=== PATIENT | male | born 1960 | race Caucasian/White ===

== ENCOUNTER 2018-09-29 21:46 | Emergency (ER) | payer BC ==
[2018-09-29] MEDS ORDERED: KETOROLAC 60 MG/2 ML VIAL IM STA (22:12)
--- NOTE | 2018-09-29 22:18 | Emergency Department Record ---
History of Present Illness - General Chief complaint: Extremity Problem Stated complaint: LT ARM INJURY,HAND NUMBNESS/ARM PAIN Time Seen by Provider: 09/29/18 22:12 Source: Patient Mode of Arrival: Ambulatory Limitations: No limitations - History of Present Illness Initial comments: 58 yo male presents to ED for evaluation of left shoulder pain, left forearm pain, and numbness to the left thumb, index finger, and middle finger. 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 Patient denies specific injury this evening, but was scared by the sound of a loud air horn that caused him to jump resulting in pain. Patient reports previous exacerbations of pain to the shoulder related to his work. MD Complaint: Joint pain Onset/Timin -: Hour(s) Location: Left, Forearm, Shoulder History of Same: Yes Radiation: Proximal Severity scale (1-10): 7 Quality: Other Consistency: Intermittent Improves with: Nothing Associated Symptoms: Denies other symptoms - Related Data Home Medications Medication Instructions Recorded Confirmed Last Taken Atorvastatin Calcium 10 mg PO DAILY 09/29/18 09/29/18 09/29/18 Dapagliflozin Propanediol [Farxiga] 5 mg PO DAILY 09/29/18 09/29/18 09/29/18 Glipizide 5 mg PO BID 09/29/18 09/29/18 09/29/18 Lisinopril/Hydrochlorothiazide 1 each PO DAILY 09/29/18 09/29/18 09/29/18 [Lisinopril-Hctz 10-12.5 mg Tab] Metformin HCl 1,000 mg PO BID 09/29/18 09/29/18 09/29/18 Previous Rx's Medication Instructions Recorded Ibuprofen [Motrin] 800 mg PO Q6H PRN #30 tab 09/29/18 Prednisone [Prednisone 20Mg] 20 mg PO BID #10 tab 09/29/18 Allergies Allergy/AdvReac Type Severity Reaction Status Date / Time No Known Drug Allergies Allergy Verified 09/29/18 22:13 Travel Screening - Travel/Exposure Within Last 30 Days Have you traveled within the last 30 days?: Yes Location Detail:: [place] - Travel/Exposure Within Last Year Have you traveled outside the [place] in the last year?: No - Additonal Travel Details Have you been exposed to anyone with a communicable illness?: No - Travel Symptoms Symptom Screening: None Review of Systems Constitutional: Denies: Chills, Fever, Malaise, Night sweats Eyes: Denies: Eye discharge, Eye pain ENT: Denies: Congestion, Ear pain, Epistaxis Respiratory: Denies: Cough, Dyspnea Cardiovascular: Denies: Chest pain, Dyspnea on exertion Endocrine: Denies: Fatigue, Heat or cold intolerance Gastrointestinal: Denies: Abdominal pain, Nausea, Vomiting Genitourinary: Denies: Incontinence, Retention Musculoskeletal: Reports: Arthralgia. Denies: Back pain, Gout, Joint swelling Skin: Denies: Bruising, Change in color Neurological: Denies: Abnormal gait, Confusion, Headache, Seizure Psychiatric: Denies: Anxiety Hematological/Lymphatic: Denies: Anemia, Blood Clots Past Medical History - SOCIAL HISTORY Smoking Status: Current some day smoker Alcohol Use: Occasional Drug Use: None - RESPIRATORY Hx Respiratory Disorders: No - CARDIOVASCULAR Hx Cardio Disorders: Yes Hx Hypertension: Yes - NEURO Hx Neuro Disorders: No - GI Hx GI Disorders: No - Hx Genitourinary Disorders: No - ENDOCRINE Hx Endocrine Disorders: Yes Hx Diabetes: Yes (type 2) - MUSCULOSKELETAL Hx Musculoskeletal Disorders: Yes Hx Arthritis: Yes - PSYCH Hx Psych Problems: No - HEMATOLOGY/ONCOLOGY Hx Hematology/Oncology Disorders: No Family Medical History Any Significant Family History?: No Physical Exam - General General Appearance: Alert, Oriented x3, Cooperative, Mild distress Limitations: No limitations - Head Head exam: Atraumatic, Normocephalic, Normal inspection Head exam detail: negative: Abrasion, Contusion, Matute's sign, General tenderness, Hematoma, Laceration - Eye Eye exam: Normal appearance. negative: Conjunctival injection, Periorbital swelling, Periorbital tenderness, Scleral icterus - ENT Ear exam: negative: Auricular hematoma, Auricular trauma Nasal Exam: negative: Active bleeding, Discharge, Dried blood, Foreign body Mouth exam: negative: Drooling, Laceration, Tongue elevation - Neck Neck exam: Normal inspection. negative: Meningismus, Tenderness - Respiratory Respiratory exam: Normal lung sounds bilaterally. negative: Rales, Respiratory distress, Rhonchi, Stridor - Cardiovascular Cardiovascular Exam: Regular rate, Normal rhythm, Normal heart sounds - GI/Abdominal GI/Abdominal exam: Soft. negative: Rebound, Rigid, Tenderness - Rectal Rectal exam: Deferred - exam: Deferred - Extremities Extremities exam: Full ROM, Tenderness, Other (TTP over the anterior shoulder, left lateral scapular region, and the mid-forearm dorsally. FROM of the shoulder, elbow, and wrist, product development specialist strength 5/5, strong distal radial pulse. Compartments of the forearm, upper arm are soft on examination.). negative: Joint swelling - Back Back exam: Denies: CVA tenderness (R), CVA tenderness (L) - Neurological Neurological exam: Alert, Normal gait, Oriented X3 - Psychiatric Psychiatric exam: Normal affect, Normal mood - Skin Skin exam: Normal color. negative: Abrasion Type of lesion: negative: abrasion Course Vital Signs 09/29/18 22:04 Temperature 97.4 F L Pulse Rate 100 H Respiratory 20 Rate Blood Pressure 152/96 Pulse Ox 100 - Reevaluation(s) Reevaluation #1: 09/29/18 22:58 Left shoulder: No acute process identified Reevaluation #2: 09/29/18 23:19 Patient was reassessed, reports that his pain symptoms are improved to 3/10. Patient was updated on his radiograph results, appears stable for discharge at this time on Motrin 800 and Prednisone as directed. Disposition Disposition: Discharge Clinical Impression: Left shoulder strain Qualifiers: Encounter type: initial encounter Qualified Code(s): S46.912A - Strain of unspecified muscle, fascia and tendon at shoulder and upper arm level, left arm , initial encounter Disposition: Home, Self-Care Condition: (2) Stable Instructions: Rotator Cuff Injury (ED) Additional Instructions: Return to ED if your symptoms worsen or if you have any concerns. Motrin and Prednisone as directed. Follow-up with your family doctor in 3-5 days as directed. Prescriptions: Ibuprofen [Motrin] 800 mg PO Q6H PRN #30 tab PRN Reason: Pain - Moderate (5-7) Prednisone [Prednisone 20Mg] 20 mg PO BID #10 tab Forms: Patient Portal Access Time of Disposition: 22:59 Quality - Quality Measures Quality Measures: N/A - Blood Pressure Screening Does Patient Have Any of the Following: No Blood Pressure Classification: Hypertensive Reading Systolic Measurement: 152 Diastolic Measurement: 96 Screening for High Blood Pressure: < First Hypertensive BP, F/U Documented > [ [id number]] First Hypertensive Follow-up Interventions: Referral to alternative/primary care provider.
== END 2018-09-29 23:29 | disposition home or self-care (01) ==
LOC: ER 21:46
DX: S46.912A Strain of unspecified muscle, fascia and tendon at shoulder and upper arm level, left arm, initial encounter (principal); X50.0XXA Overexertion from strenuous movement or load, initial encounter; R20.0 Anesthesia of skin; E11.9 Type 2 diabetes mellitus without complications; I10 Essential (primary) hypertension; F17.210 Nicotine dependence, cigarettes, uncomplicated
CPT/HCPCS: 96372; 99283; 99284; J1885